=== PATIENT | female | born 1945 | race Caucasian/White ===

== ENCOUNTER 2016-04-18 06:32 | Emergency (ER) | payer MEDICARE, OTHER ==
[~2016-04-18] VITALS: Ht 167.6 cm; Wt 95.5 kg
[~2016-04-18 06:32] MED LIST: CELEXA 20MG20 MG/TAB PO; KLONOPIN 1MG1 MG PO; LEVOTHYROXINE PO; PERCOCET 5/321 UDTAB PO; PROTONIX20 MG PO
[2016-04-18 06:34] VITALS: TEMP 98.1
[2016-04-18] MEDS ORDERED: SYNTHROID0.075 MG/T PO (06:56)
[2016-04-18] MEDS ORDERED: DOXYCYCLINE 10100 MG PO (07:08)
[2016-04-18 08:31] VITALS: BP 179/94; PULSE 63
== END 2016-04-18 08:34 | disposition home or self-care (01) ==
LOC: COL.ER 06:32
DX: J32.9 Chronic sinusitis, unspecified (principal); H92.01 Otalgia, right ear